=== PATIENT | male | born 1945 | race Caucasian/White ===

== ENCOUNTER 2017-11-28 05:13 | Day surgery (SDC) | payer OTHER ==
[~2017-11-28] VITALS: Ht 167.6 cm; Wt 98.9 kg
[~2017-11-28 05:13] MED LIST: AMLODIPINE BESYL5 MG PO; BP PO; COZAAR50 MG PO; Cipro PO; DIOVAN HCT 80-1 EACH PO; NORVASC10 MG PO; OMEPRAZOLE40 M1 PO; Percocet 7.5/325,End PO; [UNRECOGNIZED DRUG - OTHER] PO
[2017-11-28 06:25] VITALS: BP 183/86
[2017-11-28] MEDS ORDERED: NORCO 5/3251 TABLET PO (08:56)
[2017-11-28 11:59] VITALS: BP 134/80
[2017-11-28 13:10] VITALS: BP 143/67
[2017-11-28 14:00] VITALS: BP 131/68
== END 2017-11-28 16:40 | disposition home or self-care (01) ==
LOC: SDC 05:13
PROC: 0YU50JZ Supplement Right Inguinal Region with Synthetic Substitute, Open Approach (ICD-10-PCS; principal; 2017-11-28)
DX: K40.90 Unilateral inguinal hernia, without obstruction or gangrene, not specified as recurrent (principal); D17.6 Benign lipomatous neoplasm of spermatic cord; I10 Essential (primary) hypertension; K21.9 Gastro-esophageal reflux disease without esophagitis
CPT/HCPCS: C1781; J0131; J0690; J1100; J1170; J1885; J2250; J2405; J2710; J2795; J3010; J7643; Q0175; S0020